=== PATIENT | male | born 1955 | race Caucasian/White ===

== ENCOUNTER 2016-10-08 17:59 | Inpatient (IN) | payer OTHER ==
[~2016-10-08] VITALS: Ht 182.9 cm; Wt 82.3 kg
[2016-10-08] MEDS ORDERED: SODIUM CHLORIDE 0.9% 1,000 ML IV ONE (18:24)
[2016-10-08] MEDS ORDERED: ONDANSETRON 2MG/ML, 2ML ONE (18:29)
[2016-10-08] MEDS ORDERED: SODIUM CHLORIDE FLUSH 10ML SYR IVF ONE (18:30)
[2016-10-08] MEDS ORDERED: ONDANSETRON 2MG/ML, 2ML IVPush ONE (18:30)
[2016-10-08 19:24] LABS: DIFF TOTAL CELLS COUNTED 100 CELL DIFF
[2016-10-08 19:25] LABS: HEMOGLOBIN 10.1 g/dL (13.7-18.0); WHITE BLOOD COUNT 625.7 x10^3/uL (3.4-10)
[2016-10-08 19:37] LABS: DAU SCREEN DISCLAIMER
[2016-10-08 19:53] LABS: VERIFY COUNTS? YES
[2016-10-08 20:12] LABS: ANISOCYTOSIS 1+
[2016-10-08 20:13] LABS: POLYCHROMASIA 1+
[2016-10-08 20:29] LABS: ASPARTATE AMINO TRANSFERASE 120 U/L (15-37); BLOOD UREA NITROGEN 15 mg/dL (7-18)
[2016-10-08] MEDS ORDERED: SODIUM CHLORIDE FLUSH 10ML SYR IVF PRN (20:30)
[2016-10-08] MEDS ORDERED: SODIUM CHLORIDE 0.9% 1,000ML IVBOLUS ONE (21:00)
[2016-10-08] MEDS ORDERED: SODIUM CHLORIDE 0.9% 1,000 ML IV SCH (21:20)
[2016-10-08] MEDS ORDERED: ONDANSETRON 2MG/ML, 2ML IVPush PRN (21:30)
[2016-10-08 22:38] VITALS: BP 123/70
[2016-10-08 22:45] VITALS: BP 123/77
[2016-10-09] MEDS ORDERED: FUROSEMIDE 20 MG/2 ML IV ONE
[2016-10-09] MEDS: SODIUM CHLORIDE 0.9% 1,000 ML IV SCH ×2 (00:15→18:10)
[2016-10-09] MEDS: LORazepam 2 MG/ML, 1ML IVPush PRN ×2 (00:26→09:39)
[2016-10-09 01:14] VITALS: BP 111/67
[2016-10-09] MEDS: HYDROXYUREA 500 MG CAPSULE PO SCH ×3 (01:20→19:37)
[2016-10-09 05:39] LABS: BLOOD UREA NITROGEN 16 mg/dL (7-18)
[2016-10-09 05:51] LABS: ASPARTATE AMINO TRANSFERASE 119 U/L (15-37); LACTATE DEHYDROGENASE 1972 U/L (87-241)
[2016-10-09 06:52] VITALS: BP 123/69
[2016-10-09 06:54] LABS: HEMATOCRIT 28.7 % (39.2-51.8); HEMOGLOBIN 8.9 g/dL (13.7-18.0)
[2016-10-09 06:58] LABS: DIFF TOTAL CELLS COUNTED 100 CELL DIFF
[2016-10-09 10:08] LABS: WHITE BLOOD COUNT 602.4 x10^3/uL (3.4-10)
[2016-10-09 10:24] LABS: VERIFY COUNTS? YES
[2016-10-09 10:26] LABS: ANISOCYTOSIS 1+; POIKILOCYTOSIS 1+; SMUDGE CELLS 1+
[2016-10-09 10:27] LABS: BLOOD UREA NITROGEN 16 mg/dL (7-18)
[2016-10-09 10:30] LABS: ASPARTATE AMINO TRANSFERASE 104 U/L (15-37)
[2016-10-09] MEDS: ALLOPURINOL 300 MG TABLET PO SCH (10:59)
[2016-10-09] MEDS ORDERED: INSULIN REGULAR 100 UNITS/ML, 3ML VIAL IVPush ONE ×2 (11:30→12:00)
[2016-10-09] MEDS ORDERED: DEXTROSE 50%, 50ML SYRINGE IVPush ONE (11:30)
[2016-10-09 14:30] VITALS: BP 122/87
[2016-10-09] MEDS ORDERED: ONDA4VIA4 IVPush (17:29)
[2016-10-09] MEDS ORDERED: HYDR500C PO (17:29)
[2016-10-09] MEDS ORDERED: ALLO300T PO (17:29)
[2016-10-09] MEDS ORDERED: LORA2VIA4 IVPush (17:29)
[2016-10-09 19:20] VITALS: BP 117/68
[2016-10-10 01:02] VITALS: BP 115/71
[2016-10-10] MEDS: SODIUM CHLORIDE 0.9% 1,000 ML IV SCH (03:00)
[2016-10-10] MEDS: HYDROXYUREA 500 MG CAPSULE PO SCH ×2 (03:15→10:26)
[2016-10-10 07:58] VITALS: BP 115/67
[2016-10-10 09:30] LABS: BLOOD UREA NITROGEN 17 mg/dL (7-18)
[2016-10-10 09:34] LABS: ASPARTATE AMINO TRANSFERASE 98 U/L (15-37)
[2016-10-10] MEDS: ALLOPURINOL 300 MG TABLET PO SCH (09:51)
[2016-10-10 10:49] LABS: HEMATOCRIT 29.3 % (39.2-51.8); HEMOGLOBIN 10.1 g/dL (13.7-18.0)
[2016-10-10 10:50] LABS: DIFF TOTAL CELLS COUNTED 100 CELL DIFF
[2016-10-10 10:55] LABS: WHITE BLOOD COUNT 573.7 x10^3/uL (3.4-10)
[2016-10-10 11:01] LABS: VERIFY COUNTS? YES
[2016-10-10 11:02] LABS: ANISOCYTOSIS 2+; POLYCHROMASIA 1+
[2016-10-10] MEDS ORDERED: DEXTROSE 50%, 50ML SYRINGE ONE (11:12)
[2016-10-10] MEDS ORDERED: DEXTROSE 50%, 50ML SYRINGE IVPush ONE (11:30)
[2016-10-10] MEDS ORDERED: INSULIN REGULAR 100 UNITS/ML, 3ML VIAL IVPush ONE (11:40)
== END 2016-10-10 13:19 | disposition short-term general hospital (02) | DRG 834 ==
LOC: ED 20:19 → EDIP 20:24 → 5SO 22:37
PROVIDERS: ATTEND Internal Medicine
PROC: 02HV33Z Insertion of Infusion Device into Superior Vena Cava, Percutaneous Approach (ICD-10-PCS; principal; 2016-10-09)
PROC: B548ZZA Ultrasonography of Superior Vena Cava, Guidance (ICD-10-PCS; 2016-10-09)
PROC: B5181ZA Fluoroscopy of Superior Vena Cava using Low Osmolar Contrast, Guidance (ICD-10-PCS; 2016-10-09)
DX: C91.00 Acute lymphoblastic leukemia not having achieved remission (principal); K72.00 Acute and subacute hepatic failure without coma; K85.90 Acute pancreatitis without necrosis or infection, unspecified; R18.8 Other ascites; D53.9 Nutritional anemia, unspecified; D69.6 Thrombocytopenia, unspecified; E87.5 Hyperkalemia; F12.90 Cannabis use, unspecified, uncomplicated; G47.09 Other insomnia; R63.4 Abnormal weight loss; R63.0 Anorexia; R68.81 Early satiety; Z79.899 Other long term (current) drug therapy; Z88.0 Allergy status to penicillin; Z87.891 Personal history of nicotine dependence
CPT/HCPCS: 36415; 36556; 71010; 76937; 77001; 80053; 80307; 81003; 82140; 83605; 83615; 84145; 84550; 85025; 85610; 85730; 87040; 93005; 96361; 96374; C1894; J1815; J2405; C1751; J1642; J1940; J2060; J7030